=== PATIENT | female | born 1965 | race Caucasian/White ===

== ENCOUNTER 2022-04-06 10:03 | Outpatient (CLI) | payer OTHER, SELFPAY ==
--- NOTE | 2022-04-06 10:15 | CRLHL7_ITS ---
For Patients: As a result of the Century Cures Act, medical imaging exams and procedure reports are released immediately into your electronic medical record. You may view this report before your referring provider. If you have questions, please contact your health care provider. BILATERAL SCREENING MAMMOGRAM WITH COMPUTER-AIDED DETECTION AND TOMOSYNTHESIS TECHNIQUE: CC and MLO views were obtained. These mammographic images have been obtained using full-field digital technique. These mammographic images were interpreted with the benefit of computer-aided detection. Breast Tomosynthesis was used in this interpretation. COMPARISON FILM: 06/19/19, 04/25/18, 08/18/13. FINDINGS: There are scattered areas of fibroglandular density IMPRESSION: There is no radiographic evidence for malignancy. ASSESSMENT: BI-RADS Category 1: Negative RECOMMENDATION: Routine screening mammogram in 1 year. A lay language report of this examination will be provided to the patient. Hosea Novak M.D. Diagnostic Radiologist [email or web address] TIM/Dictated by: Hosea Novak MD @ 04/06/2022 11:58:00 AM (Electronically Signed)
== END 2022-04-06 10:04 | disposition home or self-care (01) ==
PROVIDERS: PCP Family Medicine; Visit Provider Family Medicine
DX: Z12.31 Encounter for screening mammogram for malignant neoplasm of breast (principal)
CPT/HCPCS: 77063; 77067

== ENCOUNTER 2022-04-10 14:31 | Outpatient (CLI) | payer OTHER, SELFPAY ==
[2022-04-10 08:44] LABS: Hemoglobin A1C* 5.6 % (0-5.6)
[2022-04-10 10:17] LABS: Albumin* 5.1 g/dL (3.3-5.0); Chloride* 99 mmol/L (96-114)
[2022-04-10 10:18] LABS: Potassium* 4.4 mmol/L (3.6-5.1); Sodium* 138 mmol/L (135-149)
[2022-04-10 10:20] LABS: Aspartate Amino Transferase* 28 U/L (12-35); Bilirubin Total* 0.6 mg/dL (0.1-1.5); Carbon Dioxide* 25 mmol/L (20-32); Cholesterol* 219 mg/dL (90-199); Creatinine* 0.8 mg/dL (0.5-1.5); Estimated Glomerular Filt Rate 86 ml/min; Total Protein* 7.3 g/dL (6.0-8.3)
[2022-04-10 10:21] LABS: Alanine Aminotransferase* 24 U/L (4-35); Alkaline Phosphatase* 67 U/L (40-150); Blood Urea Nitrogen* 16 mg/dL (7-30); Calcium* 9.8 mg/dL (8.4-10.6); Glucose* 95 mg/dL (60-115); HDL Cholesterol* 51 mg/dL (>=50); LDL Cholesterol Calculated 130 mg/dL (<100); Triglycerides* 188 mg/dL (40-149)
[2022-04-10 10:35] LABS: Creatinine Urine 40.1 mg/dL
[2022-04-10 10:42] LABS: Microalbumin Creatinine Ratio 20 mg/g (0-30); Microalbumin Urine < 1 mg/dL
== END 2022-04-10 14:32 | disposition home or self-care (01) ==
PROVIDERS: PCP Family Medicine; Visit Provider Family Medicine
DX: Z01.419 Encounter for gynecological examination (general) (routine) without abnormal findings (principal); E11.9 Type 2 diabetes mellitus without complications; I10 Essential (primary) hypertension; E78.5 Hyperlipidemia, unspecified; E66.3 Overweight
CPT/HCPCS: 80053; 80061; 82043; 82570; 83036

== ENCOUNTER 2023-10-08 07:54 | Outpatient (CLI) | payer OTHER, SELFPAY ==
--- OUTSIDE RECORDS SUMMARY | 2023-10-13 12:52 | XMS_ITS | Clinical Summary ---
Author Name Unknown Organization [facility] Address [address] [place] [address] Care Team Providers Care C Application Developer Name Role Phone Montse eKnny MD Primary Care Provider Source Comments You are receiving this document as you are listed as the primary care provider,follow-up provider, or the patient has been referred to you for consultation.This is in compliance with the Medicare and[facility] EHR Incentive Program,which states Providers who transition their patient to another setting of careor provider of care or refers their patient to another provider of care shouldprovide summary care record for each transition of care or referral. [facility] Allergies No known active allergies Medications Medication Sig Dispensed Refills Start Date End Date Status atorvastatin (LIPITOR) 10 MG tablet TK 1 T PO HS 3 08/05/2017 Active lisinopril (ZESTRIL) 2.5 MG tablet TK 1 T PO D 0 08/20/2017 Active metFORMIN XR (GLUCOPHAGE XR) 500 MG 24 hour release tablet TK 1 T PO BID 3 08/05/2017 Active spironolactone (ALDACTONE) 50 MG tablet TK 2 TS PO QAM AND 1 T PO QHS 2 06/22/2017 Active ciprofloxacin (CILOXAN) 0.3 % eye drop solutionIndications:A cute bacterial conjunctivitis of left eye Instill 2 drops into conjunctival sac(s) of affected eye(s) every 2 hours while awake for 2 days, then 1 drop every 4 hours while awake for next 5 days. Total treatment length 7 days 5 mL 10/03/2023 Active Active Problems No known active problems Encounters Date Type Department Care Team Description 10/03/2023 10:20 AM CDT Telemedicine Virtual Urgent Care [address] [place] [id number] Lyly Laird, VITICULTURIST, RN SECURITY Acute bacterial conjunctivitis of left eye (Primary Dx) from Last 3 Months Social History Tobacco Use Types Packs/Day Years Used Date Smoking Tobacco: Never Smokeless Tobacco: Never Sex and Gender Information Value Date Recorded Sex Assigned at Not on file Gender Identity Not on file Sexual Orientation Not on file Plan of Treatment Health Maintenance Due Date Last Done Comments Cervical Cancer Screening Due 1965 Colon Cancer Screening Plan Due 1965 Hep C Screening (Preventive Services) 1965 Mammogram 1965 HIV Screening (Preventive Services) 1981 Adult Preventive Visit 1983 HepB (1) 02/03/1984 Cholesterol 2010 DTaP/Tdap/Td (2 - Tdap) 08/21/2027 08/20/2017 Pneumococcal Aged Out 03/24/2019 No longer eligi ble based on patient's age to complete this topic Zoster/Shingles Completed 05/01/2019, 01/26/2019 COVID-19 Vaccine Completed 04/21/2023, 09/2021, 10/01/2021, Additional history exists Influenza Completed 04/21/2023, 09/2021, 03/25/2021, Additional history exists HepA Aged Out No longer eligi ble based on patient's age to complete this topic Hib Aged Out No longer eligi ble based on patient's age to complete this topic IPV (Polio) Aged Out No longer eligi ble based on patient's age to complete this topic MCV4 Aged Out No longer eligi ble based on patient's age to complete this topic Care Teams C Application Developer Relationship Specialty Start Date End Date Montse Kenny MD [address] [place] [address] PCP - General Family Practice 08/11/17
--- OUTSIDE RECORDS SUMMARY | 2023-10-13 12:52 | XMS_ITS | Encounter Summary ---
Author Name Unknown Organization [facility] Address [address] [place] [id number] Care Team Providers Care Help Desk Assistant Name Role Phone Montse Kenny MD Primary Care Provider Encounter Details Date Type Department Care Team (Latest Contact Info) Description 10/03/2023 10:20 AM CDT Telemedicine Virtual Urgent Care [address] [place] [phone] Lyly Laird APRN, CLAIMS TECHNICIAN [address] [place] [phone] Acute bacterial conjunctivitis of left eye (Primary Dx) Social History Tobacco Use Types Packs/Day Years Used Date Smoking Tobacco: Never Smokeless Tobacco: Never Sex and Gender Information Value Date Recorded Sex Assigned at Not on file Gender Identity Not on file Sexual Orientation Not on file documented as of this encounter Patient Instructions * Patient Instructions* Lyly Laird APRN, CNP - 10/03/2023 10:20 AM CDT Follow teaching handout Take antibiotic as prescribed, making sure to use it for the entire length of time prescribed even if symptoms are gone before then If not improving in 1-2 days, with any new or worsening symptoms, or if not well by the end of course of treatment follow-up with an in-person exam preferably an eye doctor, the urgent care, or your primary care provider Go to the emergency department if it is after hours or call your eye doctor if you develop vision changes or eye pain This note was created using a AI assisted electronic dictation device. There may be unintended grammatical, spelling, or word errors because of this. * Attachments The following attachments cannot be sent through Care Everywhere. * Conjunctivitis (Maori) documented in this encounter Progress Notes * Lyly Laird APRN, CNP - 10/03/2023 10:20 AM CDT Rooming Notes: This visit was completed as a virtual video visit using a synchronous, two-way, audio-video technology platform. All issues as documented above were discussed and addressed. Due to the nature of an audio-video modality, the only components of a physical exam that could be done are the elements supported by direct visual observation. If it was felt that the patient should be evaluated in clinic avery an emergency room setting, then this was discussed with the patient. Patient identification was verified at the start of the visit, including the patient's name, date of , and physical location in case of emergency. Patient was in her home. Provider was in home office. Patient verbally consented to visit and demonstrated an understanding of the limitations of this virtual visit. Subjective: Very pleasant 58-year-old female who wears contact lenses presents with 3 day history of redness, increasing goopy drainage, and increased tearing of her left eye. Her eye was also mattered shut thismorning. She thought it might get better on its own but because it is day 3 of this she thought shebetter get it checked out. Denies vision changes or eye pain. No foreign body sensation. She has dis posed of her contact lenses in his no longer wearing those. Denies fever, chills, runny nose, nasalcongestion, right eye symptoms, and any and all other complaints Objective: Vitals Signs: There were no vitals taken for this visit. Awake and alert Pleasant affect Skin color appropriate for race No conversational dyspnea, no cough Eye: Limited visual exam normal, limited EOM exam normal, right eye within normal limits; left eye with injection, purulent drainage MDM/Assessment: Consistent with acute bacterial conjunctivitis of the left eye. Ciprofloxacin per guidelines for contact lens wear. No contact lens wearing until treatment is concluded. Discussed home cares. Will provide with teaching handouts. Discussed follow-ups as needed. Discussed red flag/emergency symptoms.Patient verbalized understanding of plan and discharge instructions and was agreeable to both. They had no further questions, comments, or concerns by the end of their visit. Visit Diagnoses: 1. Acute bacterial conjunctivitis of left eye Plan: Follow teaching handout Take antibiotic as prescribed, making sure to use it for the entire length of time prescribed even if symptoms are gone before then If not improving in 1-2 days, with any new or worsening symptoms, or if not well by the end of course of treatment follow-up with an in-person exam preferably an eye doctor, the urgent care, or your primary care provider Go to the emergency department if it is after hours or call your eye doctor if you develop vision changes or eye pain This note was created using a AI assisted electronic dictation device. There may be unintended grammatical, spelling, or word errors because of this. documented in this encounter Plan of Treatment Not on file documented as of this encounter Visit Diagnoses Diagnosis Acute bacterial conjunctivitis of left eye- Primary documented in this encounter Care Teams Help Desk Assistant Relationship Specialty Start Date End Date Montse Kenny MD [address] [place] [id number] PCP - General Family Practice 08/11/17 documented as of this encounter
== END 2023-10-08 07:55 | disposition home or self-care (01) ==
LOC: NFLDREF 10-13 12:49
PROVIDERS: PCP Family Medicine; Referring Provider Family Medicine; Visit Provider Family Medicine
DX: E11.9 Type 2 diabetes mellitus without complications (principal); E78.5 Hyperlipidemia, unspecified; I10 Essential (primary) hypertension; Z79.4 Long term (current) use of insulin
CPT/HCPCS: 80053; 80061; 82043; 82570

== ENCOUNTER 2024-02-07 09:05 | Outpatient (CLI) | payer OTHER, SELFPAY ==
--- OUTSIDE RECORDS SUMMARY | 2024-02-07 09:06 | XMS_ITS | Clinical Summary ---
[facility] Organization [facility] Address [address], [place] [address] Care Team Providers Care Correction Officer Head Name Role Phone Montse Kenny MD Primary Care Provider Source Comments You are receiving this document as you are listed as the primary care provider,follow-up provider, or the patient has been referred to you for consultation.This is in compliance with the Medicare and[facility] EHR Incentive Program,which states Providers who transition their patient to another setting of careor provider of care or refers their patient to another provider of care shouldprovide summary care record for each transition of care or referral. [employer] Allergies No known active allergies Medications Medication [...] Active Active Problems No known active problems Social History Tobacco Use Types Packs/Day Years [...] Visit 1983 HepB (1) 02/03/1984 Cholesterol 2010 Influenza (#1) 2024 04/21/2023, 1009/2021, 03/25/2021, Additional history exists DTaP/Tdap/Td (2 - Tdap) 08/21/2027 08/20/2017 Pneumococcal Aged Out 03/24/2019 No longer eligi ble based on patient's age to complete this topic Zoster/Shingles Completed 05/01/2019, 01/26/2019 COVID-19 Vaccine Completed 04/21/2023, 09/2021, 10/01/2021, Additional history exists HepA Aged Out No [...] age to complete this topic Care Teams Correction Officer Head Relationship Specialty Start Date End Date Montse Kenny MD [address] [place] [address] PCP - General Family Practice 08/11/17
--- NOTE | 2024-02-07 09:15 | CRLHL7_ITS ---
For Patients: As a result of the Cures Act, medical imaging exams and procedure reports are released immediately into your electronic medical record. You may view this report before your referring provider. If you have questions, please contact your health care provider. BILATERAL SCREENING MAMMOGRAM WITH COMPUTER-AIDED DETECTION AND TOMOSYNTHESIS TECHNIQUE: CC and MLO views were obtained. These mammographic images have been obtained using full-field digital technique. These mammographic images were interpreted with the benefit of computer-aided detection. Breast Tomosynthesis was used in this interpretation. COMPARISON FILM: 04/06/22, 06/19/19, 04/25/18. FINDINGS: There are scattered areas of fibroglandular density. IMPRESSION: There is no radiographic evidence for malignancy. ASSESSMENT: BI-RADS Category 1: Negative RECOMMENDATION: Routine screening mammogram in 1 year. A lay language report of this examination will be provided to the patient. Hosea Novak M.D. Diagnostic Radiologist [email or web address] SP/Dictated by: Hosea Novak MD @ 02/10/2024 9:44:00 AM SP/Dictated by: Hosea Novak MD @ 02/10/2024 9:44:00 AM (Electronically Signed)
== END 2024-02-07 09:06 | disposition home or self-care (01) ==
PROVIDERS: PCP Family Medicine; Visit Provider Family Medicine
DX: Z12.31 Encounter for screening mammogram for malignant neoplasm of breast (principal)
CPT/HCPCS: 77063; 77067

== ENCOUNTER 2024-04-11 08:43 | Outpatient (CLI) | payer OTHER, SELFPAY ==
--- OUTSIDE RECORDS SUMMARY | 2024-04-11 08:48 | XMS_ITS | Clinical Summary ---
Author Organization [facility] Address [address], [place] [address] Care Team Providers Care Results Engineer Name Role Phone Montse Kenny MD Primary Care Provider Source Comments You are receiving this document as you are listed as the primary care provider,follow-up provider, or the patient has been referred to you for consultation.This is in compliance with the Medicare and[facility] EHR Incentive Program,which states Providers who transition their patient to another setting of careor provider of care or refers their patient to another provider of care shouldprovide summary care record for each transition of care or referral. [facility] Allergies No known active allergies Medications Medication [...] Visit 1983 HepB (1) 02/03/1984 Cholesterol 2010 COVID-19 Vaccine ( season) 2024 04/21/2023, 03/17/2022, 10/01/2021, Additional history exists Influenza (#1) 2024 04/21/2023, 09/2021, 03/25/2021, Additional history exists DTaP/Tdap/Td (2 - Tdap) 08/21/2027 08/20/2017 Pneumococcal Aged Out 03/24/2019 No longer eligi ble based on patient's age to complete this topic Zoster/Shingles Completed 05/01/2019, 01/26/2019 HepA Aged Out No longer eligi ble based on patient's age to complete this topic Hib Aged Out No longer eligi ble based on patient's age to complete this topic IPV (Polio) Aged Out No longer eligi ble based on patient's age to complete this topic Infant RSV Aged Out No longer eligi ble based on patient's age to complete this topic MCV4 Aged Out No longer eligi ble based on patient's age to complete this topic Care Teams Results Engineer Relationship Specialty Start Date End Date Montse Kenny MD [address] [place] [address] PCP - General Family Practice 08/11/17
[2024-04-13 05:39] LABS: HPV Source Cervical; HPV, High Risk by TMA Not Detected
== END 2024-04-11 08:44 | disposition home or self-care (01) ==
PROVIDERS: PCP Family Medicine; Visit Provider Physician Assistant
DX: Z12.4 Encounter for screening for malignant neoplasm of cervix (principal); Z11.51 Encounter for screening for human papillomavirus (HPV)
CPT/HCPCS: 87624; 87625; 88141; 88142

== ENCOUNTER 2024-11-02 07:54 | Outpatient (CLI) | payer BC, SELFPAY | END 2024-11-02 07:55 | disposition home or self-care (01) | LOC: NFLDREF 11-05 20:08 | PROVIDERS: PCP Family Medicine; Referring Provider Family Medicine; Visit Provider Family Medicine | DX: Z00.01 Encounter for general adult medical examination with abnormal findings (principal); E11.65 Type 2 diabetes mellitus with hyperglycemia; E78.5 Hyperlipidemia, unspecified; I10 Essential (primary) hypertension; Z79.84 Long term (current) use of oral hypoglycemic drugs; Z13.21 Encounter for screening for nutritional disorder | CPT/HCPCS: 80053; 80061; 82043; 82570; 82607 ==

== ENCOUNTER 2024-11-16 09:58 | Outpatient (CLI) | payer BC, SELFPAY ==
--- NOTE | 2024-11-16 11:26 | P.ANES_ITS ---
Anesthesia Charges Start Date/Time Anesthesia Start Date: 11/16/24 Anesthesia Start Time: 10:42 Stop Date/Time Anesthesia Stop Date: 11/16/24 Anesthesia Stop Time: 11:25 Coding CPT Codes CPT Codes: ROSA MARIA LWR INTST NDSC NOS - 04239 ([id number]) P2 - PATIENT W/MILD SYST DISEASE, QK - HEALTH SAFETY INSTRUCTOR 2-4 CNCRNT ANES PROC, QX - CLINICAL RESEARCH SPEC SVC W/ MD MED DIRECTION
--- NOTE | 2024-11-16 11:26 | W.ANESCHARGE ---
Anesthesia Charges Start Date/Time Anesthesia Start Date: 11/16/24 Anesthesia Start Time: 10:42 Stop Date/Time Anesthesia Stop Date: 11/16/24 Anesthesia Stop Time: 11:25 Coding CPT Codes CPT Codes: ROSA MARIA LWR INTST NDSC NOS - 51214 ([id number]) P2 - PATIENT W/MILD SYST DISEASE, QK - HONEYCOMB BLANKET MAKER 2-4 CNCRNT ANES PROC, QX - CENTRAL AISLE CASHIER SVC W/ MD MED DIRECTION
--- NOTE | 2024-11-16 11:28 | P.ANES_ITS ---
Anesthesia Charges Start Date/Time Anesthesia Start Date: 11/16/24 Anesthesia Start Time: 10:42 Stop Date/Time Anesthesia Stop Date: 11/16/24 Anesthesia Stop Time: 11:25 Coding CPT Codes CPT Codes: ROSA MARIA LWR INTST NDSC NOS - 73623 ([id number]) P2 - PATIENT W/MILD SYST DISEASE, QK - CLUB ROOM ATTENDANT 2-4 CNCRNT ANES PROC, QX - RETAIL SEASONAL SPECIALIST SVC W/ MD MED DIRECTION
--- NOTE | 2024-11-16 11:28 | W.ANESCHARGE ---
Anesthesia Charges Start Date/Time Anesthesia Start Date: 11/16/24 Anesthesia Start Time: 10:42 Stop Date/Time Anesthesia Stop Date: 11/16/24 Anesthesia Stop Time: 11:25 Coding CPT Codes CPT Codes: ROSA MARIA LWR INTST NDSC NOS - 83532 ([id number]) P2 - PATIENT W/MILD SYST DISEASE, QK - PLATE MOLDER 2-4 CNCRNT ANES PROC, QX - PRECISION INSTRUMENT MAKER AND REPAIRER SVC W/ MD MED DIRECTION
== END 2024-11-16 09:59 | disposition home or self-care (01) ==
LOC: OP CLINIC 09:58
PROVIDERS: PCP Family Medicine; Visit Provider Surgery
DX: Z12.11 Encounter for screening for malignant neoplasm of colon (principal); Z80.0 Family history of malignant neoplasm of digestive organs; D12.0 Benign neoplasm of cecum; D12.2 Benign neoplasm of ascending colon; D12.5 Benign neoplasm of sigmoid colon; K57.30 Diverticulosis of large intestine without perforation or abscess without bleeding
CPT/HCPCS: 00811; 00812; 45385; J2704

== ENCOUNTER 2025-03-26 08:39 | Outpatient (CLI) | payer BC, SELFPAY | END 2025-03-26 08:40 | disposition home or self-care (01) | LOC: NFLDREF 03-27 08:47 | PROVIDERS: PCP Family Medicine; Referring Provider Family Medicine; Visit Provider Family Medicine | DX: E78.5 Hyperlipidemia, unspecified (principal); E11.9 Type 2 diabetes mellitus without complications; Z79.4 Long term (current) use of insulin; Z79.899 Other long term (current) drug therapy | CPT/HCPCS: 80053; 80061; 82043; 82570 ==

== ENCOUNTER 2025-04-18 09:15 | Outpatient (CLI) | payer BC, SELFPAY ==
[2025-04-20 06:14] LABS: HPV Source Cervix
[2025-04-25 08:51] LABS: Pap Test Digital Imaging Done
== END 2025-04-18 09:16 | disposition home or self-care (01) ==
PROVIDERS: PCP Family Medicine; Visit Provider Physician Assistant
DX: Z87.42 Personal history of other diseases of the female genital tract (principal)
CPT/HCPCS: 87624; 87625; 88141; 88142; 88175